=== PATIENT | female | born 1975 | race Caucasian/White ===

== ENCOUNTER 2018-01-07 05:50 | Inpatient (IN) ==
[2018-01-07] MEDS ORDERED: Metoprolol Tartrate 25 MG Tablet PO ONE (06:24)
[2018-01-07] MEDS ORDERED: Chlorhexidine Gluconate 2% 1 Pack (2 Cloths) TOPICAL ONE (06:24)
[2018-01-07] MEDS ORDERED: Bupivacaine/Epinephrine Inj 0.25% 50 ML Vial ONE (06:49)
[2018-01-07] MEDS ORDERED: Sodium Chlor 0.9% Inj 500 ML IV.SIG SCH (07:00)
[2018-01-07] MEDS ORDERED: ceFAZolin 2 GM Premix Inj 2 GM/50 ML PIGGYBACK IV.SIG PRN (07:00)
[2018-01-07] MEDS ORDERED: Famotidine PF Inj 20 MG/2 ML Vial ONE (07:01)
[2018-01-07] MEDS ORDERED: ceFAZolin 2 GM Premix Inj 2 GM/50 ML PIGGYBACK IV.SIG ONE (07:09)
[2018-01-07] MEDS ORDERED: Glycopyrrolate Inj 1 MG/5 ML Syringe IV.PUSH ONE (07:38)
[2018-01-07] MEDS ORDERED: Neostigmine Inj 5 MG/5 ML Syringe IV.PUSH ONE (07:38)
[2018-01-07] MEDS ORDERED: Lidocaine PF 1% Inj 5 ML Syringe OTHER ONE (07:38)
[2018-01-07] MEDS ORDERED: Post-op Orders (for Pharmacy) OTHER STA (09:33)
[2018-01-07] MEDS ORDERED: diphenhydrAMINE HCl 12.5 MG/5 ML Elixir UDC PO PRN (09:33)
[2018-01-07] MEDS ORDERED: Acetaminophen-HYDROcodone 325/7.5 Liq 15 ML UDC PO PRN (09:33)
[2018-01-07] MEDS ORDERED: fentaNYL Citrate Inj 100 MCG/2 ML Ampul ONE (09:54)
[2018-01-07] MEDS ORDERED: *Promethazine Inj 25 MG/ML Vial PERIprocedural use ONLY ONE (10:02)
[2018-01-07] MEDS: KCL 20 mEq/NACL 0.45% Inj 1,000 ML IV.CONT SCH ×2 (10:20→18:19)
[2018-01-07] MEDS ORDERED: Morphine Inj 30 MG/30 ML PCA.VIAL PCA ONE (10:41)
[2018-01-07] MEDS ORDERED: Scopalamine 1.5 MG Patch T-DERMAL ONE ×2 (11:00→11:30)
[2018-01-07] MEDS ORDERED: Morphine Inj 30 MG/30 ML PCA.VIAL PCA PRN (11:25)
[2018-01-07] MEDS ORDERED: Naloxone Inj 0.4 MG/ML Vial IV.PUSH PRN (11:25)
[2018-01-07] MEDS: Enoxaparin Inj 40 MG/0.4 ML Syringe SQ SCH (13:58)
[2018-01-07] MEDS: ceFAZolin 1 GM Premix Inj 1 GM/50 ML PIGGYBACK IV.SIG SCH (16:46)
[2018-01-08] MEDS: ceFAZolin 1 GM Premix Inj 1 GM/50 ML PIGGYBACK IV.SIG SCH ×2 (00:25→06:32)
[2018-01-08] MEDS: KCL 20 mEq/NACL 0.45% Inj 1,000 ML IV.CONT SCH ×2 (03:24→13:15)
[2018-01-08 07:35] LABS: Baso % (Auto) 0.2 % (0.0-2.0); Eos % (Auto) 0.3 % (0.0-4.0); Hematocrit 37.8 % (35.0-46.0); Hemoglobin 12.4 gm/dL (11.6-15.3); Lymph # (Auto) 2.7 th/mm3 (1.0-4.8); Lymph % (Auto) 28.1 % (9.0-44.0); Mean Corpuscular HGB Conc 32.9 % (32.0-36.0); Mean Corpuscular Hemoglobin 28.6 pg (27.0-34.0); Mean Corpuscular Volume 87.1 fL (80.0-100.0); Mean Platelet Volume 8.2 fL (7.0-11.0); Mono # (Auto) 0.5 th/mm3 (0.0-0.9); Mono % (Auto) 5.1 % (0.0-8.0); Neut # (Auto) 6.3 th/mm3 (1.8-7.7); Neut % (Auto) 66.3 % (16.0-70.0); Platelet Count 247 th/mm3 (150-450); Red Blood Count 4.34 mil/mm3 (4.00-5.30); Red Cell Distribution Width 13.9 % (11.6-17.2); White Blood Count 9.6 th/mm3 (4.0-11.0)
[2018-01-08 07:58] LABS: Carbon Dioxide 26.1 meq/L (21.0-32.0); Magnesium 1.9 mg/dL (1.5-2.5); Potassium 3.8 meq/L (3.5-5.1)
[2018-01-08 09:45] VITALS: O2SAT 98
--- NOTE | 2018-01-08 10:40 | P.PNGS ---
Subjective Patient reports: tolerating liquids well (Pt denies palpitations, chest pain or SOB. No nausea, pain is well controlled. ) Physical Exam Vital signs: Vital Signs 01/07/18 10:45 01/07/18 10:50 01/07/18 11:00 Temperature Pulse Rate 77 70 72 Respiratory Rate 18 18 18 Blood Pressure 122/73 122/73 125/74 Pulse Oximetry 100 95 97 01/07/18 11:30 01/07/18 12:00 01/07/18 12:58 Temperature Pulse Rate 78 72 71 Respiratory Rate 18 18 18 Blood Pressure 124/65 117/62 119/64 Pulse Oximetry 98 98 99 01/07/18 13:54 01/07/18 14:19 01/07/18 16:00 Temperature 98.3 F Pulse Rate 70 73 Respiratory Rate 18 17 Blood Pressure 118/67 119/79 Pulse Oximetry 98 99 97 01/07/18 20:00 01/08/18 00:00 01/08/18 01:17 Temperature 97.7 F 97.8 F Pulse Rate 69 67 Respiratory Rate 18 18 17 Blood Pressure 113/60 126/58 L Pulse Oximetry 95 96 01/08/18 04:00 01/08/18 08:00 Temperature 97.4 F L 98.2 F Pulse Rate 64 61 Respiratory Rate 17 15 Blood Pressure 122/69 95/51 L Pulse Oximetry 93 L 98 Intake & Output 01/07/18 01/08/18 01/08/18 18:59 06:59 18:59 Intake Total 1836 / 1836 1660 / 1660 50 / 50 Output Total Balance 1826 / 1826 1660 / 1660 50 / 50 Weight 103.2 kg Intake: IV 1836 / 1836 1450 / 1450 50 / 50 Potassium Chlor 20 mEq/NACL 0. 736 / 736 1000 / 1000 45% Inj 1,000 ML @ 125 mls/hr IV.CONT .Q8H [facility] Rx#:[id number] Ofirmev Inj 1,000 mg In 100 ml 100 / 100 @ 400 mls/hr IV.SIG [employer] [facility] Rx#:[id number] LR 1000 mL Inj 1,000 ML @ 30 700 / 700 300 / 300 mls/hr IV.SIG .Q24H [facility] Rx#: [id number] Ancef 1 GM Premix Inj 1 gm In 50 / 50 50 / 50 50 / 50 50 ml @ 100 mls/hr IV.SIG Q8H [facility] Rx#:[id number] Ancef 2 GM Premix Inj 2 gm In 50 / 50 50 ml @ 0 mls/hr IV.SIG .STK- MED ONE Rx#:[id number] Flagyl 500 MG Inj 100 ML @ 100 200 / 200 100 / 100 mls/hr IV.SIG Q8H [facility] Rx#: [id number] Oral 210 / 210 Output: Estimated Blood Loss 10 / 10 Other: # Voids 1 2 - Constitutional no acute distress - Routine Respiratory Exam Present: CTA bilaterally - Routine Cardiovascular Exam Present: RRR, S1, S2 - Routine Abdominal Exam Present: soft Comments: normal post operative tenderness, laproscopic sites WNL. Results - Labs 01/08/18 07:06 01/08/18 07:06 Laboratory Results - last 24 hr 01/08/18 01/08/18 07:06 07:06 WBC 9.6 RBC 4.34 Hgb 12.4 Hct 37.8 MCV 87.1 MCH 28.6 MCHC 32.9 RDW 13.9 Plt Count 247 MPV 8.2 Neut % (Auto) 66.3 Lymph % (Auto) 28.1 [place] % (Auto) 5.1 Eos % (Auto) 0.3 Baso % (Auto) 0.2 Neut # (Auto) 6.3 Lymph # (Auto) 2.7 [place] # (Auto) 0.5 Eos # (Auto) 0.0 Baso # (Auto) 0.0 WBC Differential . Differential Comment Auto diff final Sodium 139 Potassium 3.8 Chloride 107 Carbon Dioxide 26.1 Anion Gap 6 BUN 8 Creatinine 0.72 Estimated GFR 89 Random Glucose 88 Calcium 8.0 L Magnesium 1.9 Assessment and Plan - Plan POD #1 laproscopic RNY Tolerating 60 ml q 30 minutes. Ambulating ad lisy No N/V Stop [employer] Continue clears Code Status: full Discussed Condition With: patient
[2018-01-08] MEDS: Enoxaparin Inj 40 MG/0.4 ML Syringe SQ SCH (13:18)
[2018-01-08 13:56] VITALS: BP 151/76; PULSE 66; RESP 18; TEMP 97.1
--- NOTE | 2018-01-18 17:42 | MP ---
cc: Dash Bergman MD DATE OF OPERATION: 01/07/2018 PREOPERATIVE DIAGNOSIS: Morbid obesity with a BMI of 41. POSTOPERATIVE DIAGNOSIS: Morbid obesity with a BMI of 41. PROCEDURE PERFORMED: Laparoscopic Jimmy-en-Y gastric bypass, 100 cm Jimmy limb, antegastric, antecolic. SURGEON: Dash Bergman MD. PROGRAM ENGAGEMENT DIRECTOR: Dr. Huey Baltazar. Dr. Baltazar's assistance was necessary for the procedure due to the complexity of the procedure. Dr. Baltazar assisted with manipulation and exposure during the procedure. The assistance provided by [employer] was utilized managing the camera. ANESTHESIA: General endotracheal anesthesia. ESTIMATED BLOOD LOSS: 20 mL FINDINGS: Fatty liver. SPECIMENS: None. COMPLICATIONS: None. OPERATION: The patient was brought to the operating room and placed on the operating table in supine position, bilateral sequential inflation device placed on lower extremities, general anesthesia instituted, antibiotics initiated. The abdomen was prepped and draped sterilely. A point 18-cm distal to the xiphoid in the midline anesthetized with 0.25% Marcaine with epinephrine. The skin incision was made, a 5-mm OptiView port placed under direct vision and pneumoperitoneum was created. Under direct vision a 5-mm left upper quadrant, 12-mm left upper quadrant, 12-mm right upper quadrant and 5-mm right upper quadrant ports were placed. Prior to placement of all ports, the skin and peritoneum were anesthetized with 0.25% Marcaine with epinephrine. The patient's omentum was lifted into the upper abdomen. It was split down the middle to create a path for the Jimmy limb. The ligament of Treitz was identified, a point 40 cm distal identified. The small bowel was divided in this region using an [place] Flex stapler vascular load reinforced with SeamGuard. The distal segment was brought up for a distance of 100 cm, enterotomy created in this region, enterotomy in the biliopancreatic limb and a [id number] stapled jejunojejunostomy created in the usual manner. The mesenteric defect at the jejunojejunostomy was closed with 2-0 Surgidac suture in a running manner. The patient was placed in reverse Trendelenburg position with the left side up. The Kristal-Flex retractor was placed. The left lobe of the liver was retracted. The angle of His was taken down bluntly, a point 5 cm distal to the GE junction along the lesser curve identified, the lesser sac entered using blunt dissection. The stomach was partitioned horizontally using an [place]-Flex stapler blue load, an additional firing taken directed towards the angle of His to completely divide the stomach. A gastrotomy created in the new stomach, enterotomy in the Jimmy limb and gastrojejunostomy created, stomal opening of 2 cm. An 18-[place] orogastric tube was placed across the anastomosis, the defect then closed in two layers of running 2-0 Vicryl. Prior to placement of the second layer, methylene blue instilled through the orogastric tube. There was no evidence of extravasation. Evicel was then placed over the gastrojejunostomy, jejunojejunostomy and all staple lines. The operative field inspected and hemostasis was present. The CO2 was released, all ports were removed. All skin incisions were closed with 4-0 Monocryl. The abdominal wall was cleaned and a sterile dressing placed. The patient was awakened and taken to the recovery room. MD KARL Brizuela/timbo , 05:18 PM , 05:25 PM
== END 2018-01-08 19:00 | disposition home or self-care (01) | DRG 621 ==
LOC: HSDI 05:50 → N07 14:24
PROVIDERS: ADMIT Surgery; ATTEND Surgery
CPT/HCPCS: 80048; 83735; 85025; 86850; 86900; 86901; 86923; J0131; J0690; J1100; J1650; J2250; J2270; J2405; J2550; J2704; J2710; J2765; J3010; J3480; J7120; J8501